=== PATIENT | male | born 1995 | race Caucasian/White ===

== ENCOUNTER 2024-05-15 16:25 | Emergency (ER) | payer BC, SELFPAY ==
[2024-05-15 16:36] VITALS: BP 143/89
--- NOTE | 2024-05-15 16:46 | ED.GENMED ---
ED Provider Triage
<Kasey Nieves PA-C - Last Filed: 05/15/24 16:58>
-
Patient seen by provider in Triage?: Seen in Triage
Attestation: A medical screening examination has been initiated by a qualified medical provider. Based on the assessment performed at this time, it has been determined that an emergent medical condition may exist and the patient has been informed
that further medical evaluation and possible additional diagnostic testing may be needed.
HPI: 28yoM here with lower abd pressure x 1 week. Feels like something is pushing on bladder. Also c/o constipation. Pain intermittently goes to penis and scrotum. Seen at urgent care and sent to ED for CT scan. Urgent care concerned for prostatitis
or hernia.
GENERAL: Alert , in no apparent distress
EYE: No visual abnormalities.
NECK: Trachea midline
ENT: No visible abnormalities.
LUNGS: No acute respiratory distress
NEUROLOGICAL: Alert and oriented
SKIN: Skin intact. No visible changes.
MUSCULOSKELETAL: Moving extremities normally
PSYCH: Normal and appropriate interaction.
This is a medical evaluation conducted in person to initiate diagnostic evaluation and provide initial therapeutics. Please see further documentation by the treating clinician.
Abdominal labs, UA, GC/chlamydia testing, scrotal ultrasound, and CT abdomen ordered.
History of Present Illness
<Kasey Nieves PA-C - Last Filed: 05/15/24 16:58>
General
Chief Complaint: Abdominal Pain
Time Seen by Provider: 05/15/24 19:11
<Ellis Dallas DO - Last Filed: 05/15/24 20:35>
General
Source: patient and significant other
History of Present Illness
History of Present Illness:
28-year-old male who presents who presents with lower abdominal discomfort. States it does not really hurt but is just an uncomfortable feeling. Admits that has been ongoing for about a week. Does feel like he has to have a bowel movement admits
he cannot remember when the last bowel movement he had. Reports a little bit of urinary hesitancy but no dysuria. No hematuria. No hematochezia. No melena. No fevers. No vomiting. No nausea. Has had a normal appetite. No injury.
Phy Exam
<Ellis Dallas DO - Last Filed: 05/15/24 20:35>
Physical Exam
Physical Exam:
CONSTITUTIONAL Vital signs reviewed, Patient alert and oriented to person, place and time. Well-appearing
HEAD atraumatic, normocephalic.
EYES eyelids normal to inspection, Extraocular muscles intact, Conjunctiva normal, Sclera normal.
NECK normal range of motion, Trachea midline, no jugular venous distention.
RESP no respiratory distress
BACK No obvious deformities
Abdomen no distention. Mild tenderness to the lower abdomen. Rectal exam: Grossly normal. No true prostate tenderness
UPPER EXTREMITY Gross Range of motion normal, gross motor strength normal
LOWER EXTREMITY Gross range of motion normal, Gross motor strength normal
NEURO Speech normal, No focal motor deficits include, Francheska coma scale 15, Memory normal, Cranial Nerves intact to screening exam.
SKIN Skin warm, dry, and normal in color.
PSYCHIATRIC Patient oriented to person place and time, Normal affect.
Course
<Kasey Nieves PA-C - Last Filed: 05/15/24 16:58>
Orders/Labs/Results
Orders:
Orders
05/15/24 16:52
Scrotum US [US Scrotum] Urgent
Comment:
Reason For Exam: testicular pain
05/15/24 16:56
CT Abd/pelvis W Iv Cont Urgent
Comment:
Reason For Exam: Lower abd pain
05/15/24 17:00
Complete Blood Count/With Diff Urgent
Comprehensive Metabolic Panel Urgent
Lipase Urgent
Urinalysis Reflex To Culture Urgent
Date Specimen was Collected: 05/15/24
Time Specimen was Collected: 16:41
Chlamydia/GC by PCR Urgent
SINDHU Source: Urine
Specimen Description:
Source:: URINE
Date Specimen was Collected: 05/15/24
Time Specimen was Collected: 16:54
05/15/24 20:13
Magnesium Citrate [Citroma] 300 ml PO ONCE ONE
Abnormal Lab Results
05/15/24
17:00
Carbon Dioxide 32 H mmol/L
(22-30)
BUN 22 H mg/dl
(9-20)
Alkaline Phosphatase 34 L U/L
(38-126)
Albumin 5.5 H g/dl
(3.5-5.0)
05/15/24 17:00
05/15/24 17:00
Vital Signs
Initial and Last Documented VS:
Initial Vital Signs
Temp Pulse BP Pulse Ox
98.4 F 84 143/89 97
05/15/24 16:36 05/15/24 16:36 05/15/24 16:36 05/15/24 16:36
Last Documented Vital Signs
Temp Pulse Resp BP Pulse Ox
98.4 F 81 16 130/80 99
05/15/24 16:36 05/15/24 20:25 05/15/24 20:25 05/15/24 20:25 05/15/24 20:25
<Ellis Dallas, DO - Last Filed: 05/15/24 20:35>
Orders/Labs/Results
Orders:
Orders
05/15/24 16:52
Scrotum US [US Scrotum] Urgent
Comment:
Reason For Exam: testicular pain
05/15/24 16:56
CT Abd/pelvis W Iv Cont Urgent
Comment:
Reason For Exam: Lower abd pain
05/15/24 17:00
Complete Blood Count/With Diff Urgent
Comprehensive Metabolic Panel Urgent
Lipase Urgent
Urinalysis Reflex To Culture Urgent
Date Specimen was Collected: 05/15/24
Time Specimen was Collected: 16:41
Chlamydia/GC by PCR Urgent
SINDHU Source: Urine
Specimen Description:
Source:: URINE
Date Specimen was Collected: 05/15/24
Time Specimen was Collected: 16:54
05/15/24 20:13
Magnesium Citrate [Citroma] 300 ml PO ONCE ONE
Abnormal Lab Results
05/15/24
17:00
Carbon Dioxide 32 H mmol/L
(22-30)
BUN 22 H mg/dl
(9-20)
Alkaline Phosphatase 34 L U/L
(38-126)
Albumin 5.5 H g/dl
(3.5-5.0)
05/15/24 17:00
05/15/24 17:00
Vital Signs
Initial and Last Documented VS:
Initial Vital Signs
Temp Pulse BP Pulse Ox
98.4 F 84 143/89 97
05/15/24 16:36 05/15/24 16:36 05/15/24 16:36 05/15/24 16:36
Last Documented Vital Signs
Temp Pulse Resp BP Pulse Ox
98.4 F 81 16 130/80 99
05/15/24 16:36 05/15/24 20:25 05/15/24 20:25 05/15/24 20:25 05/15/24 20:25
<Ellis Dallas DO - Last Filed: 05/15/24 20:35>
MDM/Problems Addressed
Differential Diagnosis Includes:
Colitis, prostatitis, UTI, appendicitis, constipation, renal colic, inflammatory bowel disease
MDM/Problems Addressed:
Abdominal discomfort, constipation
<Ellis Dallas DO - Last Filed: 05/15/24 20:35>
*Radiology
Radiology exam reviewed: radiology read reviewed
*Pulse Oximetry
Patient hypoxic: no
*Critical Care Note
Total Time (30-74mins, 75-104mins- exclusive of procedures): Not Applicable
Data Reviewed
Source: patient and significant other
Further Testing Considered But Not Given:
Consider repeat CT with oral contrast with patient denies any upper abdominal discomfort or symptoms. Tolerating oral intake normally.
<Ellis Dallas DO - Last Filed: 05/15/24 20:35>
Patient Management
Escalation/DeEscalation of care consider admission/obs:
Patient appears well. Question whether this could all just be related to constipation. Does report some lower abdominal discomfort and his exam is grossly benign. Prostate nontender. Labs normal despite several days of symptoms. Recommended
outpatient follow-up but also will trial laxatives to see if it improves his symptoms. He will return for any progressive symptoms
ED Attending Note
<Kasey Nieves PA-C - Last Filed: 05/15/24 16:58>
-
Portions of this chart may have been created with voice recognition software.� Occasional wrong word or��sound alike� substitutions may have occurred due to the inherent limitations of voice recognition software.
Discharge Plan
Departure
Patient Disposition: Home (Routine Discharge)
Date of Disposition: 05/15/24
Time of Disposition: 20:13
Patient with high blood pressure during this ER visit?: No
Discharge Problem:
Abdominal discomfort
Instructions: Constipation, Adult (DC), Abdominal Pain
Referrals:
Ellis Perez CRNP [Family Provider] -
Activity Restrictions/Additional Instructions:
Please use magnesium citrate as discussed. If no relief, you may proceed with MiraLAX twice a day for the next 5 days. Return immediately for fever, vomiting, worsening pain, difficulty urinating or any other concerns. Please have your doctor
follow-up on your CT scan results.
Interventions
Interventions:
*Risk Screen - Suicide Last Done: 05/15/24 16:36
*General Assessment Last Done: 05/15/24 16:36
*Neglect/Abuse Screening Last Done: 05/15/24 17:05
ED- Fall Risk Assessment Last Done: 05/15/24 17:07
*ED COVID-19 Vaccine History Last Done: 05/15/24 16:36
*Nursing Disposition Last Done: 05/15/24 20:29
OQ-Ivisxc-Xjcgtcmdih Assessment Last Done: 05/15/24 17:07
Discharge Date and Time
Print Language: ALBAN[place]
[2024-05-15 17:19] LABS: % Basophils 0.7 % (0-2); % Eosinophils 1.1 % (0-6); % Immature Granulocytes 0.1 % (0-0.5); % Lymphocytes 25.1 % (20.5-51.1); % Monocytes 5.6 % (1.7-9.3); % Neutrophils 67.4 % (42.2-75.2); Absolute Basophils 0.1 10^3/uL (0-0.2); Absolute Eosinophils 0.1 10^3/uL (0-0.7); Absolute Lymphocytes 1.8 10^3/uL (1.2-3.4); Absolute Monocytes 0.4 10^3/uL (0.1-0.6); Absolute Neutrophils 4.7 10^3/uL (1.4-6.5); Hematocrit 44.3 % (39.0-52.0); Hemoglobin 15.4 g/dL (13.0-18.0); Mean Corp Hgb Conc. 34.8 g/dL (33.0-37.0); Mean Corpuscular Hgb 29.7 pg (27.0-31.0); Mean Corpuscular Volume 85.4 fL (80.0-94.0); Mean Platelet Volume 9.8 fL (7.4-10.4); Nucleated Red Blood Cells % 0 % (-); Platelet Count 247 10^3/uL (130-400); Red Blood Cell Count 5.19 10^6/uL (4.70-6.10)
[2024-05-15 17:24] LABS: Urine Albumin Negative (Neg - Trace); Urine Bilirubin Negative (Negative); Urine Character Clear (Clear); Urine Color Straw; Urine Glucose Negative (Negative); Urine Ketone Negative (Negative); Urine Leukocyte Negative (Negative); Urine Nitrite Negative (Negative); Urine Occult Blood Negative (Negative); Urine Urobilinogen Negative (Neg - 1+)
[2024-05-15 17:30] LABS: ALT (SGPT) 32 U/L (0-50); AST (SGOT) 33 U/L (17-59); Albumin 5.5 g/dl (3.5-5.0); Alkaline Phosphatase 34 U/L (38-126); Blood Urea Nitrogen 22 mg/dl (9-20); Calcium 10.2 mg/dl (8.4-10.2); Carbon Dioxide 32 mmol/L (22-30); Chloride 98 mmol/L (98-107); Glucose 98 mg/dl (70-99); Potassium 4.6 mmol/L (3.5-5.1); Sodium 138 mmol/L (135-145); Total Bilirubin 0.9 mg/dl (0.2-1.3); Total Protein 7.9 g/dl (6.3-8.2); eGFR > 60.00
[2024-05-15 17:37] LABS: Lipase 63 U/L (23-300)
[2024-05-15] MEDS: CITROMA 300 ML PO (20:23)
[2024-05-15 20:25] VITALS: BP 130/80
== END 2024-05-15 20:30 | disposition home or self-care (01) ==
LOC: EMR 16:25
PROVIDERS: Physician Assistant; EMERGENCY PHYSICIAN Emergency Medicine; FAMILY PHYSICIAN Registered Nurse
DX: R10.30 Lower abdominal pain, unspecified (principal); N50.82 Scrotal pain; K59.00 Constipation, unspecified
CPT/HCPCS: 99284; 74177; 76870; 80053; 81003; 83690; 85025; 87491; 87591; 93976; Q9967